=== PATIENT | male | born 1950 | race Two or more races ===

== ENCOUNTER 2017-09-19 16:25 | Emergency (ER) | payer OTHER ==
[2017-09-19 16:37] LABS: BASOPHIL (%) 0.4 % (0-1); BASOPHIL COUNT 0.1 K/uL (0-0.1); EOSINOPHIL (%) 0.2 % (0-5); HEMATOCRIT 49.8 % (38.0-50.0); HEMOGLOBIN 17.1 G/DL (12.5-16.6); IMMATURE GRANULOCYTE (%) 1.6 % (0.0-0.7); LYMPHOCYTE (%) 15.5 % (15-42); MCH 32.4 PG (29.0-34.0); MCHC 34.3 G/DL (30.0-36.0); MCV 94.5 FL (86-99); MONOCYTE (%) 8.4 % (3-12); MONOCYTE COUNT 1.6 K/uL (0-0.8); NEUTROPHIL (%) 73.9 % (45-76); NEUTROPHIL COUNT 14.2 K/uL (1.8-6.4); PLATELET COUNT 143 K/uL (156-360); RBC DIS.WIDTH-CV 13.6 % (11.8-14.6); RBC DIS.WIDTH-SD 47.3 % (39-53); RED BLOOD COUNT 5.27 M/uL (4.00-5.50); WHITE BLOOD COUNT 19.2 K/uL (4.1-10.2)
[2017-09-19 16:49] LABS: AMYLASE 62 IU/L (1-118); CHLORIDE 108 mEq/L (99-109); POTASSIUM 4.7 mEq/L (3.7-5.4); SODIUM 141 mEq/L (136-147)
[2017-09-19 16:50] LABS: GLUCOSE 130 mg/dL (70-99)
[2017-09-19 16:54] LABS: GFR ESTIMATE (CALCULATED) > 59 mL/min/ (58.99-99999); SERUM ETHYL ALCOHOL < 10 mg/dL
[2017-09-19 16:55] LABS: UREA NITROGEN (BUN) 16 mg/dL (9-23)
[2017-09-19 16:57] LABS: LIPASE 42 U/L (1.0-51.0)
[2017-09-19 18:13] LABS: APPEARANCE CLEAR ((CLEAR)); BILIRUBIN NEGATIVE; BLOOD LARGE; COLOR YELLOW ((YELLOW)); GLUCOSE (STRIP) >=500; KETONES NEGATIVE; LEUKOCYTES NEGATIVE; NITRITE NEGATIVE; PROTEIN (STRIP) 30; UROBILINOGEN 0.2 MG/DL (0.2-1.0)
[2017-09-19 18:21] LABS: BACTERIA NONE SEEN /HPF; EPITHELIAL CELLS RARE /HPF; MUCUS TRACE /LPF; RED BLOOD CELLS 0-5 /HPF (0-5); UCUL ADDED? NO; WHITE BLOOD CELLS 0-5 /HPF (0-5)
[2017-09-19 18:32] LABS: AMPHETAMINE NEGATIVE (500 ng/mL); BARBITURATES NEGATIVE (200 ng/mL); BENZODIAZEPINES NEGATIVE (150 ng/mL); BUPRENORPHINE NEGATIVE (10 ng/mL); COCAINE NEGATIVE (150 ng/mL); METHADONE NEGATIVE (200 ng/mL); METHAMPHETAMINE NEGATIVE (500 ng/mL); OPIATES (MORPHINE) NEGATIVE (100 ng/mL); OXYCODONE NEGATIVE (100 ng/mL); PHENCYCLIDINE NEGATIVE (25 ng/mL); PROPOXYPHENE NEGATIVE (300 ng/mL); THC CANNABINOIDS PRESUMPTIVE POSITIVE (50 ng/mL); TRICYCLIC ANTIDEPRESSANTS NEGATIVE (300 ng/mL)
== END 2017-09-19 23:36 | disposition short-term general hospital (02) ==
LOC: TRA 16:25
PROVIDERS: Emergency Medicine
PROC: 0HQ1XZZ Repair Face Skin, External Approach (ICD-10-PCS; principal; 2017-09-19)
DX: S32.501A Unspecified fracture of right pubis, initial encounter for closed fracture (principal); S32.502A Unspecified fracture of left pubis, initial encounter for closed fracture; S01.111A Laceration without foreign body of right eyelid and periocular area, initial encounter; S63.502A Unspecified sprain of left wrist, initial encounter; V49.40XA Driver injured in collision with unspecified motor vehicles in traffic accident, initial encounter; Y92.410 Unspecified street and highway as the place of occurrence of the external cause; S32.19XA Other fracture of sacrum, initial encounter for closed fracture; S32.391A Other fracture of right ilium, initial encounter for closed fracture
CPT/HCPCS: 70450; 71260; 72125; 72129; 72132; 72170; 73090; 73110; 73120; 74177; 80048; 81003; 82150; 83690; 84999; 85025; 86850; 86900; 86901; G0480; J1170; J2405; J3010